=== PATIENT | male | born 1965 | race Caucasian/White ===

== ENCOUNTER → 2017-03-25 | Outpatient (CLI) | payer OTHER ==
[2017-03-25 08:18] LABS: BASOPHILS # (AUTO) 0.17 10*3/UL; BASOPHILS % (AUTO) 1.7 % (0-1); EOSINOPHILS # (AUTO) 0.17 10*3/UL; EOSINOPHILS % (AUTO) 1.7 % (0-8); HEMATOCRIT 51.9 % (42.0-52.0); HEMOGLOBIN 17.2 g/dL (14.0-18.0); LYMPHOCYTES # (AUTO) 3.18 10*3/uL; MEAN CORPUSCULAR HEMOGLOBIN 30.6 PG (27-31); MEAN CORPUSCULAR HGB CONC 33.1 g/dL (33-37); MEAN CORPUSCULAR VOLUME 92.2 FL (80-90); MEAN PLATELET VOLUME 9.3 FL (7.4-12.2); MONOCYTES # (AUTO) 0.79 10*3/UL (0.3-0.8); MONOCYTES % (AUTO) 7.9 % (5-15); NEUTROPHILS # (AUTO) 5.69 10*3/UL; NEUTROPHILS % (AUTO) 56.7 % (50-80); RED BLOOD COUNT 5.63 10^6/uL (4.70-6.10)
[2017-03-25 08:21] LABS: PLATELET MORPHOLOGY COMMENT NORMAL MORPHOLOGY (NORM); RBC MORPHOLOGY COMMENT NORMAL MORPHOLOGY (NORM); WBC MORPHOLOGY COMMENT NORMAL MORPHOLOGY (NORM)
[2017-03-25 08:28] LABS: HEMOGLOBIN A1C 5.57 % (4.2-6.0)
[2017-03-25 08:53] LABS: BLOOD UREA NITROGEN 15 mg/dL (7-22); BUN/CREATININE RATIO 16.66 (6-20); CHOL/HDL RATIO 3.35 RATIO (0-4.0); EST GLOMERULAR FILTRATION > 60 (>60 ml/min/1.73m(2)); HDL CHOLESTEROL 37 mg/dL (40-150); SERUM ALBUMIN 3.5 g/dL (3.5-4.8); SERUM CHOLESTEROL 124 mg/dL (120-200)
[2017-03-25 09:30] LABS: FREE T4 (FREE THYROXINE) 1.16 ng/dL (0.93-1.71)
== END ==
LOC: LAB 08:05
PROVIDERS: ATTEND Family Medicine
DX: D75.1 Secondary polycythemia (principal); E11.9 Type 2 diabetes mellitus without complications; I27.2 Other secondary pulmonary hypertension; G47.33 Obstructive sleep apnea (adult) (pediatric); J44.9 Chronic obstructive pulmonary disease, unspecified; E55.9 Vitamin D deficiency, unspecified; E29.1 Testicular hypofunction; F17.209 Nicotine dependence, unspecified, with unspecified nicotine-induced disorders; Z12.5 Encounter for screening for malignant neoplasm of prostate
CPT/HCPCS: 36415; 80053; 80061; 82306; 83036; 84403; 84439; 84443; 85025; G0103

== ENCOUNTER 2017-06-14 08:58 | Emergency (ER) | payer OTHER ==
--- NOTE | 2017-06-14 09:39 | PDOC ---
Skin Rash/Insect/Abscess HPI - General Chief Complaint: Integumentary Stated Complaint: redness, itching spot right lower abd Date Seen by Provider: 06/14/17 Time Seen by Provider: 09:20 Source: POSITIVE: Patient Exam Limitations: POSITIVE: No limitations Nurse's Notes Reviewed & Considered: Yes - History of Present Illness Initial Comments: The patient is a 51-year-old male who presents to the emergency department with an area of redness and itching to his right lower abdomen. He states that yesterday he thought that he was stung or bitten by something. He developed a sharp pain and blister in the right lower abdomen. Over the past 24 hours he's had an expanding area of redness around this area. The area is primarily itchy. He denies any systemic itching, fever or any other associated complaints. Have you received a tetanus shot in the past 10 years?: Unknown - Patient Home Medications Home Medications: Home Medications Cpap 1 unit INH QHS #1 unit 06/11/13 Budesonide/Formoterol Fumarate [Symbicort] Sample #1 12/14/15 Albuterol Sulfate [Proair Hfa] 1 puff INH [id number] #1 inhaler 03/24/17 Bupropion HCl [Wellbutrin Sr] 1 tab PO BID #60 tab 03/24/17 Glycopyrrolate/Formoterol Fum [Bevespi Aerosphere Inhaler] Sample #2 03/24/17 Ergocalciferol (Vitamin D2) [Vitamin D2] 1 cap PO 2XW #16 cap 03/31/17 Glycopyrrolate/Formoterol Fum [Bevespi Aerosphere Inhaler] 2 puff IH BID #1 each 05/15/17 Glycopyrrolate/Formoterol Fum [Bevespi Aerosphere Inhaler] Sample #4 05/15/17 Cephalexin [Keflex] 500 mg PO TID #21 capsule 06/14/17 - Patient Allergies Allergies/Adverse Reactions: Allergies Allergy/AdvReac Type Severity Reaction Status Date / Time caffeine [Caffeine] Allergy passes Verified 06/14/17 09:08 out, heart race Past Medical History - heen HEENT History: Hard of Hearing Cardiovascular History: Denies History Respiratory History: COPD, Home CPAP Use, Pneumonia, Sleep Apnea, Snoring Gastrointestinal History: Denies History Genitourinary History: Denies History Endocrine History: Denies History Musculoskeletal History: Denies History Prosthesis or Implant: No Neurological History: Migraines Blood Disorders: Denies History Psychiatric History: Denies History History of Sexually Transmitted Diseases: No Cancer History: Denies History History of MDRO: No Other Type of MDRO: NO History of Other Communicable Diseases: No Alcohol Use: Rarely Substance Use Type: None Previous Surgical History: No Significant Family History: Heart disease, Cancer Past Medical History Reviewed: Reviewed - No Changes ROS - Limitations ROS Limitations: No Limitations Constitution: DENIES: Chills Cardiovascular: REPORTS: Denies Cardiac Symptoms Respiratory: REPORTS: Denies Resp Symptoms, Other (He does have a history of COPD and sleep apnea) Neurological: REPORTS: Denies Neuro Symptoms Gastrointestinal: REPORTS: Denies GI Symptoms Endocrine: REPORTS: Denies Symptoms Skin Rash/Insect/Abscess Exam - General Appearance General Appearance: REPORTS: Alert, Cooperative, No Acute Distress - Extremities Extremity: Normal ROM: (All Extremities), Normal Inspection: (All Extremities) - HEENT HEENT: POSITIVE: Head Inspection Nml - Respiratory Respiratory: REPORTS: No Respiratory Distress, Breath Sounds Normal - Cardiovascular Cardiovascular: REPORTS: Regular Rate and Rhythm, Heart Sounds Normal - Abdomen Abdomen: Soft: (All Quadrants), Denies Tenderness: (All Quadrants), No Distention: (All Quadrants) Additional Abdominal Details: He does have an area of erythema approximately 4-5 cm in diameter to the right lower abdomen, this is warm to the touch, there is a small open area less than 1 cm in the center, no induration or palpable abscess. Skin Rash/Abscess Progress - Patient's Progress MDM / ED Course: This appears to be primarily a localized allergic reaction secondary to an insect bite or sting. There is some possibility of a cellulitis component. The patient will be started on Keflex 500 mg 3 times a day for 7 days. He will take Benadryl 25-50 mg every 4-6 hours as needed for itching. He was advised return to the emergency room if he develops any increased area of swelling, pain , fever, any worsening or change in symptoms. He is advised follow-up with primary care if no improvement in 3-5 days. - Consult Counseled: POSITIVE: Patient, Family, RE: DX, RE: Need for F/U Patient Care Time - Estimated PCT Patient Care Time (In Minutes): 10 Vital Signs - VS Reviewed Vital Signs Reviewed: Yes (written documentation reviewed) Discharge Clinical Impression: Cellulitis, Insect bite Discharge Disposition: Discharged to Home Prescriptions / Orders: Cephalexin [Keflex] 500 mg PO TID #21 capsule Patient Instructions Given at Discharge: Cellulitis (ED), Insect Bite or Sting (ED) Additional Instructions: The redness around the the bite/sting site on the abdomen is most likely a localized allergic reaction. There is also some possibility of infection so you have been started on antibiotics (Keflex 500mg 3 times a day for 7 days). You can also take Benadryl 25-50mg every 4-6 hours as needed for itching. Return if increased swelling or pain, fever, any worsening or change in symptoms. Follow-up with primary care if no improvement in 3-5 days. Follow Up With: HEATH VILLATORO [Primary Care Provider] -
[2017-06-14 09:57] VITALS: RESP 14; TEMP 98.2
== END 2017-06-14 09:24 | disposition home or self-care (01) ==
LOC: ER 08:58
DX: L03.311 Cellulitis of abdominal wall (principal); S30.861A Insect bite (nonvenomous) of abdominal wall, initial encounter; W57.XXXA Bitten or stung by nonvenomous insect and other nonvenomous arthropods, initial encounter
CPT/HCPCS: 99282